=== PATIENT | female | born 2000 | race Caucasian/White ===

== ENCOUNTER 2021-02-26 16:32 | Emergency (ER) | payer OTHER ==
[~2021-02-26] VITALS: Ht 172.7 cm; Wt 62.9 kg
[2021-02-26 16:54] VITALS: BP 130/80
== END 2021-02-26 18:16 | disposition home or self-care (01) ==
LOC: ED 17:55
DX: Z20.822 Contact with and (suspected) exposure to COVID-19 (principal); R94.31 Abnormal electrocardiogram [ECG] [EKG]
CPT/HCPCS: 93005; 99284; U0003; U0005